=== PATIENT | female | born 2000 | race Caucasian/White ===

== ENCOUNTER 2024-03-17 21:07 | Emergency (ER) | payer SELFPAY ==
[~2024-03-17] VITALS: Ht 170.2 cm; Wt 113.4 kg
[2024-03-17 21:30] VITALS: BP 131/71; PULSE 82; RESP 17; TEMP 98; O2SAT 99
[2024-03-17] MEDS: KETOROLAC 30 MG/ML VIAL IM ONE (23:08)
[2024-03-17 23:32] LABS: FLU A ANTIGEN negative (NEGATIVE); FLU B ANTIGEN NEGATIVE (NEGATIVE)
[2024-03-17] MEDS ORDERED: OXYM20SP1 NS (23:44)
[2024-03-17] MEDS ORDERED: NAPR-337 PO (23:44)
== END 2024-03-18 00:09 | disposition home or self-care (01) ==
LOC: MED 21:07
DX: J06.9 Acute upper respiratory infection, unspecified (principal); Z20.822 Contact with and (suspected) exposure to COVID-19; N94.6 Dysmenorrhea, unspecified; Z79.899 Other long term (current) drug therapy
CPT/HCPCS: 71045; 81002; 81025; 87426; 87804; 96372; 99284; J1885